=== PATIENT | male | born 1980 | race Caucasian/White ===

== ENCOUNTER 2024-11-13 16:21 | Outpatient (CLI) | payer MEDICAID, SELFPAY ==
--- NOTE | ~2024-11-13 | XR_ITS ---
3 VIEWS LUMBAR SPINE Ordering provider: Chava Olivares MD History: . M54.42 - Lumbago with sciatica, left side . Comparison: None. FINDINGS: VERTEBRAL BODIES: No visible fracture or subluxation. Degenerative changes of the spine. DISK SPACES: Narrowing of the disc L5-S1. Facet joint disease at the level of L4-L5 and L5-S1. SOFT TISSUES: Possible left kidney stone. IMPRESSION: No acute osseous abnormality lumbar spine. Degenerative disc disease at the level of L5-S1. Possible left kidney stone. Reviewed, dictated and finalized at location A.
== END 2024-11-13 16:22 | disposition home or self-care (01) ==
LOC: MICIMG 16:24
PROVIDERS: PCP Family Medicine; Visit Provider Family Medicine
DX: M51.379 Other intervertebral disc degeneration, lumbosacral region without mention of lumbar back pain or lower extremity pain (principal); G89.29 Other chronic pain; M54.42 Lumbago with sciatica, left side; M54.41 Lumbago with sciatica, right side
CPT/HCPCS: 72114